=== PATIENT | female | born 2000 | race Caucasian/White ===

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

== ENCOUNTER 2020-09-24 21:26 | Emergency (ER) | payer BC, OTHER ==
[2020-09-24 21:39] VITALS: PULSE 88
[2020-09-24] MEDS ORDERED: SODIUM CHLORIDE 0.9% 1,000 ML IV STA (21:51)
--- NOTE | 2020-09-24 22:08 | ED ---
General Adult HPI - General Chief complaint: Dizziness Stated complaint: dizziness, seeing spots Time Seen by Provider: 09/24/20 21:51 Source: patient, family Mode of arrival: wheelchair Limitations: no limitations - History of Present Illness Initial comments: Patient presents to the ED stating that she got out of the shower at about 8 PM this evening then began to "see spots" and became dizzy. Patient states her symptoms improved after sitting down, but returned again once she stood up. Patient states that she still feels somewhat dizzy. Patient's mom states that the patient was at a trampoline park earlier today, and patient denies feeling d marvin while jumping on the trampoline earlier today. Patient denies having any pain, trauma or injury, fever or chills, headache, focal numbness/weakness/neuro deficit, otalgia, chest pain, dyspnea, palpitations, syncope, abdominal pain, nausea/vomiting/diarrhea, bloody or melanotic stool, dysuria or urinary symptoms, or any other symptoms or complaints. Patient states that her LMP was 2 weeks ago. - Related Data Home Medications Medication Instructions Recorded Confirmed Melatonin 5 mg PO HS 09/24/20 09/24/20 Gummy 2 tab PO DAILY 09/24/20 09/24/20 Previous Rx's Medication Instructions Recorded Meclizine [Antivert] 25 mg PO TID PRN #10 tab 09/24/20 Allergies Allergy/AdvReac Type Severity Reaction Status Date / Time latex Allergy Rash/Hives Verified 09/24/20 22:54 Review of Systems ROS Statement: Those systems with pertinent positive or pertinent negative responses have been documented in the HPI. ROS Other: All systems not noted in ROS Statement are negative. Past Medical History Past Medical History: No Reported History Additional Past Medical History / Comment(s): Obstetrics history: This is her first and she's had care with me since the first trimester. Blood type is B+, and base negative, rubella immune, hepatitis B-, RPR nonreactive, GBS negative. History of Any Multi-Drug Resistant Organisms: None Reported Past Surgical History: No Surgical Hx Reported Past Psychological History: No Psychological Hx Reported Smoking Status: Never smoker Past Alcohol Use History: None Reported Past Drug Use History: None Reported - Past Family History Father History Unknown: Yes General Exam Limitations: no limitations General appearance: alert, in no apparent distress Head exam: Present: atraumatic, normocephalic Eye exam: Present: normal appearance, PERRL, EOMI. Absent: nystagmus ENT exam: Present: mucous membranes moist Neck exam: Present: other (Trachea is in midline) Respiratory exam: Present: normal lung sounds bilaterally. Absent: respiratory distress, wheezes, rales, rhonchi, stridor Cardiovascular Exam: Present: regular rate, normal rhythm, normal heart sounds, other (Normal radial pulses bilaterally) GI/Abdominal exam: Present: soft. Absent: distended, tenderness, guarding Extremities exam: Absent: tenderness, pedal edema, calf tenderness Neurological exam: Present: alert, oriented X3, CN II-XII intact. Absent: motor sensory deficit Psychiatric exam: Present: normal affect, normal mood Skin exam: Present: warm, dry, intact, normal color Course Vital Signs 09/24/20 21:37 Temperature 98.2 F Pulse Rate 88 Respiratory 20 Rate Blood Pressure 124/88 O2 Sat by Pulse 100 Oximetry - Reevaluation(s) Reevaluation #1: 09/24/20 23:23 Patient denies development of any new symptoms while in the ED. Patient remains alert and breathing comfortably. Patient and mother are aware the patient's test results, and they both feel comfortable with the patient going home at this time. Patient was counseled about dizziness, and she was clearly explained return and follow-up instructions. Patient was instructed to follow up closely with her primary care provider. Patient feels comfortable with this plan. EKG Findings - EKG Comments: EKG Findings:: Normal sinus rhythm, ventricular rate of 80 bpm, normal CO and QRS intervals, normal QT interval, normal axis, no ST or T-wave abnormality Medical Decision Making - Medical Decision Making Patient has been ambulatory in the ED without difficulty. Patient has a normal /nonfocal neurological exam. Patient's EKG and labs are fairly unremarkable. Patient's vital signs are normal/reassuring. I do not suspect an emergent medical etiology of the patient's dizziness/symptoms. Patient was clearly given return and follow-up instructions. Will discharge patient home with her mother at this time. Patient was instructed to follow up closely with her primary care provider. - Lab Data Result diagrams: 09/24/20 22:23 09/24/20 22:23 Lab Results 09/24/20 09/24/20 Range/Units 22:23 22:23 WBC 10.1 (4.0-11.0) k/uL RBC 4.82 (3.80-5.40) m/uL Hgb 14.0 (11.4-16.0) gm/dL Hct 41.4 (34.0-46.0) % MCV 85.9 (80.0-100.0) fL MCH 29.1 (25.0-35.0) pg MCHC 33.8 (31.0-37.0) g/dL RDW 13.1 (11.5-15.5) % Plt Count 269 (150-450) k/uL MPV 8.2 Neutrophils % 64 % Lymphocytes % 27 % Monocytes % 5 % Eosinophils % 2 % Basophils % 0 % Neutrophils # 6.4 (1.3-7.7) k/uL Lymphocytes # 2.7 (1.0-4.8) k/uL Monocytes # 0.5 (0-1.0) k/uL Eosinophils # 0.2 (0-0.7) k/uL Basophils # 0.0 (0-0.2) k/uL Sodium 137 (137-145) mmol/L Potassium 4.7 (3.5-5.1) mmol/L Chloride 105 (98-107) mmol/L Carbon Dioxide 21 L (22-30) mmol/L Anion Gap 11 mmol/L BUN 12 (7-17) mg/dL Creatinine 0.67 (0.52-1.04) mg/dL Est GFR (CKD-EPI)AfAm >90 (>60 ml/min/1.73 sqM) Est GFR (CKD-EPI)NonAf >90 (>60 ml/min/1.73 sqM) Glucose 98 (74-99) mg/dL Calcium 9.6 (8.4-10.2) mg/dL Total Bilirubin 0.5 (0.2-1.3) mg/dL AST 34 (14-36) U/L ALT 10 (4-34) U/L Alkaline Phosphatase 72 (38-126) U/L Total Protein 7.5 (6.3-8.2) g/dL Albumin 4.5 (3.5-5.0) g/dL HCG, Qual Not Detected Disposition Clinical Impression: Dizziness Disposition: HOME SELF-CARE Condition: Stable Instructions (If sedation given, give patient instructions): Dizziness (ED) Additional Instructions: Return to the ER immediately should you develop any significant pain, chest pain, shortness of breath, a fever, feeling faint or fainting, numbness or weakness, persistent vomiting, or new or worsening symptoms. Follow up closely with your primary care provider. Prescriptions: Meclizine [Antivert] 25 mg PO TID PRN #10 tab PRN Reason: Vertigo Is patient prescribed a controlled substance at d/c from ED?: No Referrals: Zachary Woodward DO [Primary Care Provider] - 1-2 days Time of Disposition: 23:26
[2020-09-24 22:33] LABS: Basophils % (A) 0 %; Eosinophils # (A) 0.2 k/uL (0-0.7); Eosinophils % (A) 2 %; HCT 41.4 % (34.0-46.0); Lymphocytes # (A) 2.7 k/uL (1.0-4.8); Lymphocytes % (A) 27 %; MCH 29.1 pg (25.0-35.0); MCHC 33.8 g/dL (31.0-37.0); MCV 85.9 fL (80.0-100.0); Mean Platelet Volume 8.2; Monocytes # (A) 0.5 k/uL (0-1.0); Monocytes % (A) 5 %; Neutrophils # (A) 6.4 k/uL (1.3-7.7); Neutrophils % (A) 64 %; Platelet Count 269 k/uL (150-450); RBC 4.82 m/uL (3.80-5.40); RDW 13.1 % (11.5-15.5); WBC 10.1 k/uL (4.0-11.0)
[2020-09-24 22:58] LABS: ALT 10 U/L (4-34); African American GFR (CKD) >90 (>60 ml/min/1.73 sqM); Anion Gap 11 mmol/L; Blood Urea Nitrogen 12 mg/dL (7-17); Calcium 9.6 mg/dL (8.4-10.2); Carbon Dioxide 21 mmol/L (22-30); Chloride 105 mmol/L (98-107); Glucose 98 mg/dL (74-99); Non-African American GFR(CKD) >90 (>60 ml/min/1.73 sqM); Sodium 137 mmol/L (137-145); Total Bilirubin 0.5 mg/dL (0.2-1.3)
[2020-09-24 23:03] LABS: Potassium 4.7 mmol/L (3.5-5.1); Total Protein 7.5 g/dL (6.3-8.2)
[2020-09-24 23:04] LABS: AST 34 U/L (14-36); Albumin 4.5 g/dL (3.5-5.0); Alkaline Phosphatase 72 U/L (38-126)
[2020-09-24] MEDS ORDERED: MECLIZINE 12.5 MG TAB PO STA (23:18)
[2020-09-24 23:21] LABS: HCG,Qualitative Serum Not Detected
[2020-09-25 00:18] VITALS: BP 121/86; RESP 15; TEMP 98.7
== END 2020-09-25 00:12 | disposition home or self-care (01) ==
LOC: EC 21:26
DX: R42 Dizziness and giddiness (principal)
CPT/HCPCS: 36415; 80053; 84703; 85025; 93005; 96376; 99284

== ENCOUNTER 2021-06-06 17:34 | Emergency (ER) | payer BC, OTHER ==
[2021-06-06] MEDS ORDERED: MECLIZINE 12.5 MG TAB PO STA (22:47)
[2021-06-06] MEDS ORDERED: ONDANSETRON 4 MG/2 ML VIAL IVP STA (22:48)
[2021-06-06] MEDS ORDERED: SODIUM CHLORIDE 0.9% 500 ML 500 ML IV STA (22:48)
[2021-06-06] MEDS ORDERED: KETOROLAC 30 MG/ML 1 ML VIAL IVP STA (22:48)
[2021-06-06 23:40] LABS: Basophils % (A) 0 %; Eosinophils # (A) 0.1 k/uL (0-0.7); Eosinophils % (A) 1 %; HCT 43.7 % (34.0-46.0); HGB 15.3 gm/dL (11.4-16.0); Lymphocytes % (A) 12 %; MCH 29.4 pg (25.0-35.0); Mean Platelet Volume 8.7; Monocytes # (A) 0.4 k/uL (0-1.0); Monocytes % (A) 4 %; Neutrophils # (A) 7.2 k/uL (1.3-7.7); Neutrophils % (A) 82 %; Platelet Count 202 k/uL (150-450); RDW 12.7 % (11.5-15.5); WBC 8.8 k/uL (4.0-11.0)
[2021-06-06 23:49] LABS: ALT 9 U/L (4-34); AST 22 U/L (14-36); African American GFR (CKD) >90 (>60 ml/min/1.73 sqM); Albumin 4.4 g/dL (3.5-5.0); Alkaline Phosphatase 64 U/L (38-126); Anion Gap 10 mmol/L; Blood Urea Nitrogen 12 mg/dL (7-17); Calcium 9.1 mg/dL (8.4-10.2); Carbon Dioxide 21 mmol/L (22-30); Chloride 104 mmol/L (98-107); Glucose 93 mg/dL (74-99); Non-African American GFR(CKD) >90 (>60 ml/min/1.73 sqM); Potassium 4.6 mmol/L (3.5-5.1); Sodium 135 mmol/L (137-145); Total Bilirubin 0.6 mg/dL (0.2-1.3); Total Protein 7.6 g/dL (6.3-8.2)
--- NOTE | 2021-06-07 00:34 | ED ---
Dizziness HPI - General Chief Complaint: Dizziness Stated Complaint: vision problems, off balance Time Seen by Provider: 06/06/21 22:03 Source: patient, RN notes reviewed Mode of arrival: ambulatory Limitations: no limitations - History of Present Illness Initial Comments: Patient is a 20-year-old female presenting to the emergency Department with complaints of dizziness and nausea that was happening today while at work. Patient states she does have a history of vertigo, used to take Antivert every day and does keep her symptoms at bay. Patient states her doctor told her to stop taking it. Today while she was at work, she had an episode of ligh theadedness, diaphoresis and then was having dizziness. She is also complaining of a headache now too. Patient denies any fevers or chills, no falls. She denies being . No abdominal pain. Patient denies any chest pain or shortness of breath. She has no further complaints. - Related Data Home Medications Medication Instructions Recorded Confirmed Melatonin 5 mg PO HS 09/24/20 09/24/20 Gummy 2 tab PO DAILY 09/24/20 09/24/20 Previous Rx's Medication Instructions Recorded Meclizine [Antivert] 25 mg PO TID PRN #10 tab 09/24/20 Allergies Allergy/AdvReac Type Severity Reaction Status Date / Time latex Allergy Rash/Hives Verified 06/06/21 18:47 Review of Systems ROS Statement: Those systems with pertinent positive or pertinent negative responses have been documented in the HPI. ROS Other: All systems not noted in ROS Statement are negative. Past Medical History Past Medical History: No Reported History Additional Past Medical History / Comment(s): Obstetrics history: This is her first and she's had care with me since the first trimester. Blood type is B+, and base negative, rubella immune, hepatitis B-, RPR nonreactive, GBS negative. History of Any Multi-Drug Resistant Organisms: None Reported Past Surgical History: No Surgical Hx Reported Past Psychological History: No Psychological Hx Reported Smoking Status: Never smoker Past Alcohol Use History: None Reported Past Drug Use History: None Reported - Past Family History Father History Unknown: Yes General Exam - General Exam Comments Initial Comments: GENERAL: Patient is well-developed and well-nourished. Patient is nontoxic and in no acute distress. HEAD: Atraumatic, normocephalic. EYES: Pupils equal round and reactive to light, extraocular movements intact, sclera anicteric, conjunctiva are normal. Eyelids were unremarkable. ENT: TMs normal, nares patent, oropharynx clear without exudates. Moist mucous membranes. NECK: Normal range of motion, supple without lymphadenopathy or JVD. LUNGS: Unlabored respirations. Breath sounds clear to auscultation bilaterally and equal. No wheezes rales or rhonchi. HEART: Regular rate and rhythm without murmurs, rubs or gallops. ABDOMEN: Soft, nontender, normoactive bowel sounds. No guarding, no rebound. No masses appreciated. MUSCULOSKELETAL: Normal extremities with adequate strength and normal range of motion, no pitting or edema. No clubbing or cyanosis. NEUROLOGICAL: Patient is alert and oriented x 3. Motor and sensory are also intact. Cranial nerves II through XII grossly intact. Symmetrical smile. Normal speech, normal gait. PSYCH: Normal mood, normal affect. SKIN: Warm, Dry, normal turgor, no rashes or lesions noted. Limitations: no limitations Course Vital Signs 06/06/21 06/06/21 06/07/21 18:43 23:30 00:54 Temperature 98.3 F 97.9 F Pulse Rate 89 95 87 Respiratory 16 18 19 Rate Blood Pressure 125/61 114/82 118/78 O2 Sat by Pulse 99 97 99 Oximetry EKG Findings - EKG Comments: EKG Findings:: Normal sinus rhythm, normal ECG, no signs of acute process. Ventricular rate 98, AR interval 136, QT 348. Medical Decision Making - Medical Decision Making Patient is a 20-year-old female here with lightheadedness dizziness, nausea and a headache that started about work today. She does history of vertigo. Vital signs are stable, exam is unremarkable, no acute neuro deficits. EKG reveals normal sinus rhythm. Labs are unremarkable including a normal thyroid. Patient was given IV fluids, meclizine and headache medication. She has been resting comfortably, no acute distress. Patient ordered [employer] into the ER, eating without difficulty. I discussed these findings with her. I recommended taking meclizine for the dizziness. She is agreeable this plan of care and she is stable for discharge. - Lab Data Result diagrams: 06/06/21 23:30 06/06/21 23:30 Lab Results 06/06/21 06/06/21 Range/Units 23:30 23:30 WBC 8.8 (4.0-11.0) k/uL RBC 5.20 (3.80-5.40) m/uL Hgb 15.3 (11.4-16.0) gm/dL Hct 43.7 (34.0-46.0) % MCV 84.0 (80.0-100.0) fL MCH 29.4 (25.0-35.0) pg MCHC 35.0 (31.0-37.0) g/dL RDW 12.7 (11.5-15.5) % Plt Count 202 (150-450) k/uL MPV 8.7 Neutrophils % 82 % Lymphocytes % 12 % Monocytes % 4 % Eosinophils % 1 % Basophils % 0 % Neutrophils # 7.2 (1.3-7.7) k/uL Lymphocytes # 1.0 (1.0-4.8) k/uL Monocytes # 0.4 (0-1.0) k/uL Eosinophils # 0.1 (0-0.7) k/uL Basophils # 0.0 (0-0.2) k/uL Sodium 135 L (137-145) mmol/L Potassium 4.6 (3.5-5.1) mmol/L Chloride 104 (98-107) mmol/L Carbon Dioxide 21 L (22-30) mmol/L Anion Gap 10 mmol/L BUN 12 (7-17) mg/dL Creatinine 0.59 (0.52-1.04) mg/dL Est GFR (CKD-EPI)AfAm >90 (>60 ml/min/1.73 sqM) Est GFR (CKD-EPI)NonAf >90 (>60 ml/min/1.73 sqM) Glucose 93 (74-99) mg/dL Calcium 9.1 (8.4-10.2) mg/dL Total Bilirubin 0.6 (0.2-1.3) mg/dL AST 22 (14-36) U/L ALT 9 (4-34) U/L Alkaline Phosphatase 64 (38-126) U/L Total Protein 7.6 (6.3-8.2) g/dL Albumin 4.4 (3.5-5.0) g/dL TSH 1.440 (0.465-4.680) mIU/L Disposition Clinical Impression: Dizziness Disposition: HOME SELF-CARE Condition: Stable Instructions (If sedation given, give patient instructions): Dizziness (ED) Additional Instructions: Please return to the Emergency Department if symptoms worsen or any other concerns. May take meclizine 25 mg once daily for any symptoms. This is [id number]. Follow-up with your primary care. Is patient prescribed a controlled substance at d/c from ED?: No Referrals: Zachary Woodward DO [Primary Care Provider] - 1-2 days Time of Disposition: 00:34
[2021-06-07 00:56] VITALS: BP 118/78; PULSE 87; RESP 19; TEMP 97.9
== END 2021-06-07 00:48 | disposition home or self-care (01) ==
LOC: EC 17:34
DX: R42 Dizziness and giddiness (principal); R51.9 Headache, unspecified
CPT/HCPCS: 36415; 93005; 80053; 84443; 85025; 99284; 96374; 96375; J2405; J1885

== ENCOUNTER 2021-09-29 10:33 | Emergency (ER) | payer BC, OTHER ==
[2021-09-29 11:02] VITALS: TEMP 97.9
[2021-09-29] MEDS ORDERED: ONDANSETRON 4 MG/2 ML VIAL IVP STA (11:28)
[2021-09-29] MEDS ORDERED: SODIUM CHLORIDE 0.9% 1,000 ML IV STA (11:28)
[2021-09-29] MEDS ORDERED: KETOROLAC 15 MG/ML 1 ML VIAL IVP STA (11:39)
--- NOTE | 2021-09-29 12:06 | ED ---
General Adult HPI - General Chief complaint: Dizziness Stated complaint: NVD Time Seen by Provider: 09/29/21 11:05 Source: patient Mode of arrival: ambulatory Limitations: no limitations - History of Present Illness Initial comments: Patient is a 20-year-old female with history of vertigo and migraines presenting with chief complaint of nausea and vomiting. Patient states that for the last 3 days she has "not been able to keep anything down". Patient states she cannot tolerate fluids by mouth. She has been experiencing some lightheadedness and headache. Patient states that she previously was given meclizine for vertigo she took some this morning which did not alleviate her symptoms. Patient admits to unilateral headache on the left side that is consistent with her usual migraine headaches. She also admits to some neck tension. She has taken some Tylenol at home which has not helped the headache. She denies abdominal pain, chest pain, shortness of breath, loss of consciousness, diarrhea, constipation, hematemesis, hematochezia, hematuria, urgency, frequency, dysuria, fever, chills, palpitations, weakness. - Related Data Home Medications Medication Instructions Recorded Confirmed Melatonin 5 mg PO HS 09/24/20 09/24/20 Gummy 2 tab PO DAILY 09/24/20 09/24/20 Previous Rx's Medication Instructions Recorded Meclizine [Antivert] 25 mg PO TID PRN #10 tab 09/24/20 Cyclobenzaprine [Flexeril] 10 mg PO TID PRN #20 tab 09/29/21 Ondansetron Odt [Zofran Odt] 4 mg PO Q8HR PRN #10 tab 09/29/21 Allergies Allergy/AdvReac Type Severity Reaction Status Date / Time latex Allergy Rash/Hives Verified 09/29/21 11:02 Review of Systems ROS Statement: Those systems with pertinent positive or pertinent negative responses have been documented in the HPI. ROS Other: All systems not noted in ROS Statement are negative. Past Medical History Past Medical History: No Reported History Additional Past Medical History / Comment(s): Obstetrics history: This is her first and she's had care with me since the first trimester. Blood type is B+, and base negative, rubella immune, hepatitis B-, RPR nonreactive, GBS negative. History of Any Multi-Drug Resistant Organisms: None Reported Past Surgical History: No Surgical Hx Reported Past Psychological History: No Psychological Hx Reported Smoking Status: Never smoker Past Alcohol Use History: None Reported Past Drug Use History: None Reported - Past Family History Father History Unknown: Yes General Exam Limitations: no limitations General appearance: alert, in no apparent distress Head exam: Present: atraumatic, normocephalic, normal inspection Eye exam: Present: normal appearance, PERRL, EOMI. Absent: scleral icterus, conjunctival injection, periorbital swelling ENT exam: Present: normal exam, mucous membranes moist Neck exam: Present: normal inspection, tenderness, full ROM. Absent: meningismus, lymphadenopathy Respiratory exam: Present: normal lung sounds bilaterally. Absent: respiratory distress, wheezes, rales, rhonchi, stridor Cardiovascular Exam: Present: regular rate, normal rhythm, normal heart sounds. Absent: systolic murmur, diastolic murmur, rubs, gallop, clicks GI/Abdominal exam: Present: soft, normal bowel sounds. Absent: distended, tenderness, guarding, rebound, rigid Neurological exam: Present: alert, oriented X3, CN II-XII intact Expanded Patient oriented to: Present: person, place, time Speech: Present: fluid speech Cranial nerves: EOM's Intact: Normal, Nystagmus: Normal Eye Response: (4) open spontaneously Motor Response: (6) obeys commands Verbal Response: (5) oriented [place] Total: 15 Psychiatric exam: Present: normal affect, normal mood Skin exam: Present: warm, dry, intact, normal color. Absent: rash Course Vital Signs 09/29/21 09/29/21 10:58 14:01 Temperature 97.9 F Pulse Rate 76 67 Respiratory 18 17 Rate Blood Pressure 115/80 112/73 O2 Sat by Pulse 98 98 Oximetry Medical Decision Making - Medical Decision Making Patient is a 20-year-old female presenting with chief complaint of Nausea and vomiting. Patient states that for the last 3 days she "has not been able to keep anything down". She also admits to some lightheadedness and headache. She took meclizine at home which did not alleviate her symptoms. On exam there are no focal neuro deficits. Abdomen is soft, nontender, nondistended. Normal bowel sounds in all 4 quadrants. UA is positive for blood, patient is currently on menstrual cycle. CBC and CMP are unremarkable. Patient was given Toradol, Zofran, and 1 L IV bolus normal saline. On reassessment patient reports nausea and vomiting are resolved, headache has improved but is not totally resolved. On examination there is some paraspinal muscle tenderness in the neck. I provided the patient with a prescription for Zofran and Flexeril. Patient appears well and able to be discharged at this time. I educated the patient on return parameters, educated on alarms symptoms, and answered all questions. Follow-up with PCP in one to 2 days. Patient conveyed verbal understanding and agreed to the plan. I discussed this case with my attending Dr. Guzman - Lab Data Result diagrams: 09/29/21 11:55 09/29/21 11:55 Lab Results 09/29/21 09/29/21 09/29/21 Range/Units 11:55 11:55 12:40 WBC 7.1 (4.0-11.0) k/uL RBC 4.80 (3.80-5.40) m/uL Hgb 13.9 (11.4-16.0) gm/dL Hct 42.2 (34.0-46.0) % MCV 88.0 (80.0-100.0) fL MCH 29.1 (25.0-35.0) pg MCHC 33.0 (31.0-37.0) g/dL RDW 12.8 (11.5-15.5) % Plt Count 229 (150-450) k/uL MPV 9.0 Neutrophils % 68 % Lymphocytes % 23 % Monocytes % 6 % Eosinophils % 2 % Basophils % 1 % Neutrophils # 4.8 (1.3-7.7) k/uL Lymphocytes # 1.6 (1.0-4.8) k/uL Monocytes # 0.4 (0-1.0) k/uL Eosinophils # 0.1 (0-0.7) k/uL Basophils # 0.0 (0-0.2) k/uL Sodium 137 (137-145) mmol/L Potassium 4.2 (3.5-5.1) mmol/L Chloride 106 (98-107) mmol/L Carbon Dioxide 23 (22-30) mmol/L Anion Gap 8 mmol/L BUN 12 (7-17) mg/dL Creatinine 0.71 (0.52-1.04) mg/dL Est GFR (CKD-EPI)AfAm >90 (>60 ml/min/1.73 sqM) Est GFR (CKD-EPI)NonAf >90 (>60 ml/min/1.73 sqM) Glucose 88 (74-99) mg/dL Calcium 8.7 (8.4-10.2) mg/dL Total Bilirubin 0.4 (0.2-1.3) mg/dL AST 20 (14-36) U/L ALT 8 (4-34) U/L Alkaline Phosphatase 61 (38-126) U/L Total Protein 7.2 (6.3-8.2) g/dL Albumin 4.2 (3.5-5.0) g/dL Urine Color Light Yellow Urine Appearance Clear (Clear) Urine pH 7.0 (5.0-8.0) Ur Specific Donnelly 1.007 (1.001-1.035) Urine Protein Negative (Negative) Urine Glucose (UA) Negative (Negative) Urine Ketones Negative (Negative) Urine Blood Moderate H (Negative) Urine Nitrite Negative (Negative) Urine Bilirubin Negative (Negative) Urine Urobilinogen <2.0 (<2.0) mg/dL Ur Leukocyte Esterase Trace H (Negative) Urine RBC 162 H (0-5) /hpf Urine WBC 4 (0-5) /hpf Ur Squamous Epith Cells 1 (0-4) /hpf Urine Mucus Rare H (None) /hpf Urine HCG, Qual (Not Detectd) 09/29/21 Range/Units 12:40 WBC (4.0-11.0) k/uL RBC (3.80-5.40) m/uL Hgb (11.4-16.0) gm/dL Hct (34.0-46.0) % MCV (80.0-100.0) fL MCH (25.0-35.0) pg MCHC (31.0-37.0) g/dL RDW (11.5-15.5) % Plt Count (150-450) k/uL MPV Neutrophils % % Lymphocytes % % Monocytes % % Eosinophils % % Basophils % % Neutrophils # (1.3-7.7) k/uL Lymphocytes # (1.0-4.8) k/uL Monocytes # (0-1.0) k/uL Eosinophils # (0-0.7) k/uL Basophils # (0-0.2) k/uL Sodium (137-145) mmol/L Potassium (3.5-5.1) mmol/L Chloride (98-107) mmol/L Carbon Dioxide (22-30) mmol/L Anion Gap mmol/L BUN (7-17) mg/dL Creatinine (0.52-1.04) mg/dL Est GFR (CKD-EPI)AfAm (>60 ml/min/1.73 sqM) Est GFR (CKD-EPI)NonAf (>60 ml/min/1.73 sqM) Glucose (74-99) mg/dL Calcium (8.4-10.2) mg/dL Total Bilirubin (0.2-1.3) mg/dL AST (14-36) U/L ALT (4-34) U/L Alkaline Phosphatase (38-126) U/L Total Protein (6.3-8.2) g/dL Albumin (3.5-5.0) g/dL Urine Color Urine Appearance (Clear) Urine pH (5.0-8.0) Ur Specific [place] (1.001-1.035) Urine Protein (Negative) Urine Glucose (UA) (Negative) Urine Ketones (Negative) Urine Blood (Negative) Urine Nitrite (Negative) Urine Bilirubin (Negative) Urine Urobilinogen (<2.0) mg/dL Ur Leukocyte Esterase (Negative) Urine RBC (0-5) /hpf Urine WBC (0-5) /hpf Ur Squamous Epith Cells (0-4) /hpf Urine Mucus (None) /hpf Urine HCG, Qual Not Detected (Not Detectd) Disposition Clinical Impression: Nausea and vomiting, Tension headache Disposition: HOME SELF-CARE Condition: Good Instructions (If sedation given, give patient instructions): Tension Headache (ED), Acute Headache (DC), Acute Nausea and Vomiting (DC) Additional Instructions: Follow-up with primary care in 2-3 days. Take medication as prescribed. You may take Motrin and Tylenol as needed for pain control. Report back to ER with any worsening symptoms or new onset alarm symptoms. Prescriptions: Cyclobenzaprine [Flexeril] 10 mg PO TID PRN #20 tab PRN Reason: Muscle Pain Ondansetron Odt [Zofran Odt] 4 mg PO Q8HR PRN #10 tab PRN Reason: Nausea Is patient prescribed a controlled substance at d/c from ED?: No Referrals: Zacahry Woodward DO [Primary Care Provider] - 1-2 days Time of Disposition: 13:39
[2021-09-29 12:07] LABS: Basophils % (A) 1 %; Eosinophils # (A) 0.1 k/uL (0-0.7); Eosinophils % (A) 2 %; HCT 42.2 % (34.0-46.0); HGB 13.9 gm/dL (11.4-16.0); Lymphocytes # (A) 1.6 k/uL (1.0-4.8); Lymphocytes % (A) 23 %; MCH 29.1 pg (25.0-35.0); Monocytes # (A) 0.4 k/uL (0-1.0); Monocytes % (A) 6 %; Neutrophils # (A) 4.8 k/uL (1.3-7.7); Neutrophils % (A) 68 %; Platelet Count 229 k/uL (150-450); RDW 12.8 % (11.5-15.5); WBC 7.1 k/uL (4.0-11.0)
[2021-09-29 12:20] LABS: Potassium 4.2 mmol/L (3.5-5.1)
[2021-09-29 12:21] LABS: ALT 8 U/L (4-34); AST 20 U/L (14-36); African American GFR (CKD) >90 (>60 ml/min/1.73 sqM); Albumin 4.2 g/dL (3.5-5.0); Alkaline Phosphatase 61 U/L (38-126); Anion Gap 8 mmol/L; Blood Urea Nitrogen 12 mg/dL (7-17); Calcium 8.7 mg/dL (8.4-10.2); Carbon Dioxide 23 mmol/L (22-30); Chloride 106 mmol/L (98-107); Glucose 88 mg/dL (74-99); Non-African American GFR(CKD) >90 (>60 ml/min/1.73 sqM); Sodium 137 mmol/L (137-145); Total Bilirubin 0.4 mg/dL (0.2-1.3); Total Protein 7.2 g/dL (6.3-8.2)
[2021-09-29 12:49] LABS: Appearance,Urine Clear (Clear); Bilirubin,Urine Negative (Negative); Blood,Urine Moderate (Negative); Color,Urine Light Yellow; Glucose,Urine (UA) Negative (Negative); Ketones,Urine Negative (Negative); Leukocyte Esterase,Urine Trace (Negative); Mucus,Urine Rare /hpf; Nitrite,Urine Negative (Negative); Protein,Urine Negative (Negative); RBC,Urine 162 /hpf (0-5); Specific Gravity,Urine 1.007 (1.001-1.035); Squamous Epithelial Cell,Urine 1 /hpf (0-4); Urobilinogen,Urine <2.0 mg/dL (<2.0); WBC,Urine 4 /hpf (0-5)
[2021-09-29 14:02] VITALS: BP 112/73; PULSE 67; RESP 17
== END 2021-09-29 14:02 | disposition home or self-care (01) ==
LOC: EC 10:33
DX: G44.209 Tension-type headache, unspecified, not intractable (principal); R11.2 Nausea with vomiting, unspecified; Z91.040 Latex allergy status
CPT/HCPCS: 99284; 96374; 96375; 96361; 36415; 80053; 85025; 81001; 81025; J2405; J1885

== ENCOUNTER 2022-03-07 17:26 | Emergency (ER) | payer OTHER, BC ==
[2022-03-07 18:14] VITALS: BP 120/78; PULSE 84; RESP 18; TEMP 98.3
--- NOTE | 2022-03-07 19:02 | XR ---
Result: Clinical History: Little finger pain/injury. Comparison: None available. Technique: 3 views of the right hand. Findings: No acute fracture or dislocation is seen. The visualized osseous structures are in anatomic alignmen t. The joint spaces are preserved. There is no definite radiopaque foreign body seen. Impression: No acute osseous abnormality.
--- NOTE | 2022-03-07 19:46 | ED ---
Upper Extremity HPI - General Chief Complaint: Extremity Injury, Upper Stated Complaint: right pinkie finger injury at work Time Seen by Provider: 03/07/22 19:11 Source: patient, RN notes reviewed Mode of arrival: ambulatory Limitations: no limitations - History of Present Illness Initial Comments: This is a 21-year-old female who presents to the emergency department for an injury to the right pinky finger. Patient states that she was at work earlier today, when she accidentally bent her finger forward and then backwards. Patient works at [employer]. She has since had difficulty moving the finger ever since. Denies any fevers, chills, sore throat, cough, dyspnea, chest pain, palpitations, abdominal pain, nausea, vomiting, diarrhea, back pain, or headaches. MD Complaint: Injury to:: right, finger Handedness: ambidextrous Place: work - Related Data Home Medications Medication Instructions Recorded Confirmed Melatonin 5 mg PO HS 09/24/20 09/24/20 Gummy 2 tab PO DAILY 09/24/20 09/24/20 Previous Rx's Medication Instructions Recorded Meclizine [Antivert] 25 mg PO TID PRN #10 tab 09/24/20 Cyclobenzaprine [Flexeril] 10 mg PO TID PRN #20 tab 09/29/21 Ondansetron Odt [Zofran Odt] 4 mg PO Q8HR PRN #10 tab 09/29/21 Allergies Allergy/AdvReac Type Severity Reaction Status Date / Time latex Allergy Rash/Hives Verified 03/07/22 18:14 Review of Systems ROS Statement: Those systems with pertinent positive or pertinent negative responses have been documented in the HPI. ROS Other: All systems not noted in ROS Statement are negative. Past Medical History Past Medical History: No Reported History Additional Past Medical History / Comment(s): Obstetrics history: This is her first and she's had care with me since the first trimester. Blood type is B+, and base negative, rubella immune, hepatitis B-, RPR nonreactive, GBS negative. History of Any Multi-Drug Resistant Organisms: None Reported Past Surgical History: No Surgical Hx Reported Past Psychological History: No Psychological Hx Reported Smoking Status: Vaper Past Alcohol Use History: Occasional Past Drug Use History: None Reported - Past Family History Father History Unknown: Yes General Exam Limitations: no limitations General appearance: alert, in no apparent distress Head exam: Present: atraumatic, normocephalic, normal inspection Respiratory exam: Present: normal lung sounds bilaterally. Absent: respiratory distress, wheezes, rales, rhonchi, stridor Cardiovascular Exam: Present: regular rate, normal rhythm, normal heart sounds. Absent: systolic murmur, diastolic murmur, rubs, gallop, clicks Extremities exam: Present: other (Decreased range of motion of the right fifth finger secondary to pain. Tenderness with passive range of motion of the right fifth finger. Capillary refill less than 1 second. No overlying swelling, erythema, or ecchymosis.) Neurological exam: Present: alert, oriented X3, CN II-XII intact Psychiatric exam: Present: normal affect, normal mood Skin exam: Present: warm, dry, intact, normal color. Absent: rash Course Vital Signs 03/07/22 18:11 Temperature 98.3 F Pulse Rate 84 Respiratory 18 Rate Blood Pressure 120/78 O2 Sat by Pulse 99 Oximetry Medical Decision Making - Medical Decision Making This is a 21-year-old female who presents to the emergency department for an injury to the right pinky finger. X-rays obtained, revealing no acute irregularities. Patient's hand was wrapped with an Prateek bandage. Advised applying ice for 15-20 minutes every 2-3 hours and taking ibuprofen and Tylenol as needed for pain relief. If symptoms do not improve in 7-10 days, she may need repeat x-rays in the event swelling was hiding fractures that are not currently identifiable. Advised to continue wrapping her hand with an Prateek bandage or purchasing an [id number] wrist brace if she finds it to be beneficial. Return precautions reviewed in depth, the patient is instructed to return to the emergency department with any new, worsening, or concerning symptoms. Patient verbalized understanding. This case was discussed in detail with the attending ED physician. Presentation, findings, and treatment plan discussed in detail as well. - Radiology Data Radiology results: report reviewed, image reviewed Disposition Clinical Impression: Other sprain of right little finger, initial encounter Disposition: HOME SELF-CARE Instructions (If sedation given, give patient instructions): Finger Sprain (ED), Hand Sprain (ED) Additional Instructions: Return to the emergency department with any new, worsening, or concerning symptoms. Alternate with ibuprofen and Tylenol as needed for pain relief. Appl y ice for 15-20 minutes every 2-3 hours. If symptoms do not improve in 7-10 days, return for repeat x-rays, as you may have fractures that were not initially identifiable. Continue to wrap the hand with an Prateek bandage or purchase an [id number] wrist brace if you find that to be beneficial. Is patient prescribed a controlled substance at d/c from ED?: No Referrals: Zachary Woodward DO [Primary Care Provider] - 1-2 days
== END 2022-03-07 19:57 | disposition home or self-care (01) ==
LOC: EC 17:26
DX: S63.696A Other sprain of right little finger, initial encounter (principal); F17.290 Nicotine dependence, other tobacco product, uncomplicated; Z91.040 Latex allergy status; X50.9XXA Other and unspecified overexertion or strenuous movements or postures, initial encounter; Y92.89 Other specified places as the place of occurrence of the external cause; Y99.0 Civilian activity done for income or pay
CPT/HCPCS: 99283

== ENCOUNTER 2022-07-05 14:15 | Emergency (ER) | payer BC, OTHER ==
[2022-07-05 14:20] VITALS: BP 131/77; PULSE 100; RESP 20; TEMP 98.6
[2022-07-05] MEDS ORDERED: SODIUM CHLORIDE 0.9% 1,000 ML IV STA (17:01)
[2022-07-05] MEDS ORDERED: ACETAMINOPHEN TAB 500 MG TAB PO STA (17:01)
[2022-07-05] MEDS ORDERED: ONDANSETRON 4 MG/2 ML VIAL IVP STA (17:01)
[2022-07-05 17:46] LABS: Basophils % (A) 0 %; Eosinophils # (A) 0.1 k/uL (0-0.7); Eosinophils % (A) 1 %; HCT 43.1 % (34.0-46.0); HGB 14.9 gm/dL (11.4-16.0); Lymphocytes # (A) 1.8 k/uL (1.0-4.8); Lymphocytes % (A) 18 %; MCH 29.7 pg (25.0-35.0); MCHC 34.7 g/dL (31.0-37.0); MCV 85.7 fL (80.0-100.0); Mean Platelet Volume 9.2; Monocytes # (A) 0.4 k/uL (0-1.0); Monocytes % (A) 4 %; Neutrophils # (A) 7.7 k/uL (1.3-7.7); Neutrophils % (A) 75 %; Platelet Count 261 k/uL (150-450); RBC 5.02 m/uL (3.80-5.40); RDW 12.3 % (11.5-15.5); WBC 10.2 k/uL (3.8-10.6)
[2022-07-05 17:56] LABS: ALT 12 U/L (4-34); AST 21 U/L (14-36); African American GFR (CKD) >90 (>60 ml/min/1.73 sqM); Albumin 4.7 g/dL (3.5-5.0); Alkaline Phosphatase 62 U/L (38-126); Anion Gap 9 mmol/L; Blood Urea Nitrogen 11 mg/dL (7-17); Calcium 9.2 mg/dL (8.4-10.2); Carbon Dioxide 24 mmol/L (22-30); Chloride 106 mmol/L (98-107); Glucose 94 mg/dL (74-99); Lipase 142 U/L (23-300); Non-African American GFR(CKD) >90 (>60 ml/min/1.73 sqM); Potassium 4.1 mmol/L (3.5-5.1); Sodium 139 mmol/L (137-145); Total Bilirubin 0.2 mg/dL (0.2-1.3); Total Protein 7.8 g/dL (6.3-8.2)
[2022-07-05 18:14] LABS: HCG,Quantitative Serum 1330.7 mIU/mL
[2022-07-05 18:44] LABS: INR 0.9 (<1.2); Partial Thromboplastin Time 23.4 sec (22.0-30.0); Prothrombin Time 9.8 sec (9.0-12.0)
--- NOTE | 2022-07-05 18:56 | US ---
EXAMINATION TYPE: Transabdominal DATE OF EXAM: 07/05/2022 6:27 PM COMPARISON: NONE CLINICAL HISTORY: , abd pain. Abdominal pain x couple days. . EXAM PERFORMED: Transvaginal (TV) and Transabdominal (TA) EXAM MEASUREMENTS: GESTATIONAL AGE / DATING Physician Established: Not yet established Dates by LMP: (5 weeks/2 days) EDC: 03/05/2023 Dates by First Scan: This is first scan Dates by Current Scan for: Possible gestational sac in uterus measures out of range. MATERNAL ANATOMY Uterus: 8.8 x 5.0 x 5.2 cm. Right Ovary: Area measured in right adnexa that could resemble right ovary: 4.3 x 2.6 x 2.4 cm. Compl ex area with vascularity seen within as mentioned below. Left Ovary: 2.6 x 1.7 x 0.8 cm. Post CDS / Adnexa: Free fluid seen in CDS. See below. Presence of free fluid: Yes in CDS Presence of corpus luteal cyst: Questionable area seen within the right adnexa as mentioned below. Presence of subchorionic bleed: No GESTATION / SURVEY CRL: Not seen MSD: 0.30 cm. (Measures out of range) Yolk Sac (normal less than 6mm): Not seen Heart Rate: -- Rhythm: -- IUP: Possible gestational sac in uterus measures out of range. Date of LMP: 05/29/2022 Beta HcG (if available): 1,330.7 mIU/mL Questionable complex area with peripheral vascularity seen in the right adnexa which appears to be within the right ovary versus right adnexa. This area measures 2.1 x 2.2 x 1.8 IMPRESSION: 1. Small anechoic intrauterine cystic structure without evidence for yolk sac or pole at this time. This is thought to represent an early gestational sac with a positive beta hCG of 1330 mIU/mL, however ectopic and abnormal intrauterine cannot be ruled out based on this exam alone. Follow-up with pelvic ultrasound in 7-10 days and serial beta-hCG studies are recommended to e n sure further development of the fetus. 2. Right adnexal cystic structure ultrasound imaging does appear to be within within the right ovary and not a separate, this may represent a corpus luteum. Attention on short-term follow-up in 5-7 day s.
[2022-07-05 19:19] LABS: Appearance,Urine Cloudy (Clear); Bacteria,Urine Rare /hpf; Bilirubin,Urine Negative (Negative); Blood,Urine Negative (Negative); Color,Urine Yellow; Glucose,Urine (UA) Negative (Negative); Ketones,Urine Negative (Negative); Leukocyte Esterase,Urine Large (Negative); Mucus,Urine Occasional /hpf; Nitrite,Urine Negative (Negative); PH, Urine 5.5 (5.0-8.0); Protein,Urine Trace (Negative); RBC,Urine 2 /hpf (0-5); Specific Gravity,Urine 1.023 (1.001-1.035); Squamous Epithelial Cell,Urine 9 /hpf (0-4); Urobilinogen,Urine <2.0 mg/dL (<2.0); WBC,Urine 10 /hpf (0-5)
--- NOTE | 2022-07-05 19:27 | ED ---
General Adult HPI - General Chief complaint: Abdominal Pain Stated complaint: poss preg Time Seen by Provider: 07/05/22 16:22 Source: patient, RN notes reviewed, old records reviewed Mode of arrival: ambulatory Limitations: no limitations - History of Present Illness Initial comments: Patient is a 21-year-old female presents emergency Department complaining of nonspecific abdominal cramping sensation. Discovered She was recently. Last menstrual period was 05/29/2022. She is G2, P1 denies any vaginal bleeding or discharge. No history of STI's. Denies any urinary symptoms including dysuria or hematuria. Denies any nausea or vomiting. Denies any diarrhea. Denies any chest pain or shortness breath. Unable to follow up with her PCP or [facility] wanted to be evaluated for . Has been on vitamins since her last . No other acute complaints at this time. - Related Data Home Medications Medication Instructions Recorded Confirmed Melatonin 5 mg PO HS 09/24/20 09/24/20 Gummy 2 tab PO DAILY 09/24/20 09/24/20 Previous Rx's Medication Instructions Recorded Meclizine [Antivert] 25 mg PO TID PRN #10 tab 09/24/20 Cyclobenzaprine [Flexeril] 10 mg PO TID PRN #20 tab 09/29/21 Ondansetron Odt [Zofran Odt] 4 mg PO Q8HR PRN #10 tab 09/29/21 Allergies Allergy/AdvReac Type Severity Reaction Status Date / Time latex Allergy Rash/Hives Verified 03/07/22 18:14 Review of Systems ROS Statement: Those systems with pertinent positive or pertinent negative responses have been documented in the HPI. Review of Systems: CONST: Denies fever EYES: Denies blurry vision ENT: Denies nasal congestion C/V: Denies Chest pain RESP: Denies shortness of breath GI: Endorses abdominal cramping : Denies dysuria SKIN: Denies rash. MSK: Denies joint pain. NEURO: Denies headache ROS Other: All systems not noted in ROS Statement are negative. Past Medical History Past Medical History: No Reported History Additional Past Medical History / Comment(s): Obstetrics history: This is her first and she's had care with me since the first trimester. Blood type is B+, and base negative, rubella immune, hepatitis B-, RPR nonreactive, GBS negative. History of Any Multi-Drug Resistant Organisms: None Reported Past Surgical History: No Surgical Hx Reported Past Psychological History: No Psychological Hx Reported Smoking Status: Vaper Past Alcohol Use History: Occasional Past Drug Use History: None Reported - Past Family History Father History Unknown: Yes General Exam - General Exam Comments Initial Comments: General: Appears in no acute distress. HEAD: Normal with no signs of head trauma. EYES: PERRLA, EOMI, conjunctiva normal, no discharge. ENT: Hearing grossly intact, normal oropharynx. RESPIRATORY: Clear breath sounds bilaterally. No wheezes, rales, or rhonchi. C/V: Regular rate and rhythm. S1 and S2 auscultated, no edema, peripheral pulses 2+ and intact throughout ABD: Abd is soft, nontender, nondistended. No guarding. No peritoneal signs. No rebound tenderness. EXT: Normal range of motion, no obvious deformity SKIN: No rashes or lesions observed on exposed skin. NEURO: Alert and oriented 4. Limitations: no limitations Course Vital Signs 07/05/22 14:18 Temperature 98.6 F Pulse Rate 100 Respiratory 20 Rate Blood Pressure 131/77 O2 Sat by Pulse 99 Oximetry Medical Decision Making - Medical Decision Making Was pt. sent in by a medical professional or institution? @ -None Did you speak to anyone other than the patient for history? @ -No Did you review nursing and triage notes? @ -Yes. I agreed. Were old charts reviewed? @ -No Differential Diagnosis? @ -Differential Abdominal Pain Women: Appendicitis, Cholecystitis, diverticulosis, ischemic bowel, pancreatitis, hepatitis, UTI, gastroenteritis, AAA, incarcerated hernia, bowel obstruction, constipation, inflammatory bowel, hepatitis, peptic ulcer disease, splenic infarction, perforated viscus, vulvitis, ovarian torsion, PID, kidney stone, placenta abruption, this is not meant to be an all-inclusive list EKG interpreted by me (3pts min.)? @ -none X-rays interpreted by me (1pt min.)? @ -none CT interpreted by me (1pt min.)? @ -none U/S interpreted by me (1pt. min.)? @ -Yes. Appears to have a corpus luteal cyst as well as findings of possible early intrauterine gestation. No definitive IUP What testing was considered but not performed? (CT, X-rays, U/S, labs)? Why? @None What meds were considered but not given? Why? @ -None Did you discuss the management of the patient with other professionals? @ -None Did you reconcile home meds? @ -none Was smoking cessation discussed for >3mins.? @ -none Was critical care preformed (if so, how long)? @ -none Were there social determinants of health that impacted care today? How? (Homelessness, low income, unemployed, alcoholism, drug addiction, transportation, low edu. Level, literacy, decrease access to med. care, penitentiary, rehab)? @ -None Was there de-escalation of care discussed even if they declined? (Discuss DNR or withdrawal of care, Hospice)? @ -No What co-morbidities impacted this encounter? (DM, HTN, Smoking, COPD, CAD, Cancer, CVA, Hep., AIDS, mental health diagnosis, sleep apnea, morbid obesity)? @ -None Was patient admitted / discharged? @ -Based on the patient's presentation and physical exam, she is having abdominal cramping setting of new onset . Discussed over like to obtain abdominal laboratory studies, quantitative beta hCG, as well as an ultrasound. She was in agreement this plan. Vital signs within acceptable limits. She'll be given symptomatic therapeutic medications. Ultrasound showed no definitive IUP but possible early signs of an IUP. Laboratory studies were unremarkable. Urine was a contaminated catch. Beta-hCG is elevated to 1300. When I went to reevaluate an update the patient, she had eloped from the emergency department. I did attempt to contact her multiple times on her cell phone and she did not return a phone call. Patient eloped from the ED. she never had an IV placed. Undiagnosed new problem with uncertain prognosis? @ -New Drug Therapy requiring intensive monitoring for toxicity (Heparin, Nitro, Insulin, Cardizem)? @ -none Were any procedures done? @ -none Diagnosis/symptom? @ -New Acute, or Chronic, or Acute on Chronic? @ -Acute Uncomplicated (without systemic symptoms) or Complicated (systemic symptoms)? @ -Uncomplicated Side effects of treatment? @ -none Exacerbation, Progression, or Severe Exacerbation] @ -no Poses a threat to life or bodily function? @ -no - Lab Data Result diagrams: 07/05/22 17:42 07/05/22 17:42 Lab Results 07/05/22 07/05/22 07/05/22 Range/Units 17:42 17:42 17:42 WBC 10.2 (3.8-10.6) k/uL RBC 5.02 (3.80-5.40) m/uL Hgb 14.9 (11.4-16.0) gm/dL Hct 43.1 (34.0-46.0) % MCV 85.7 (80.0-100.0) fL MCH 29.7 (25.0-35.0) pg MCHC 34.7 (31.0-37.0) g/dL RDW 12.3 (11.5-15.5) % Plt Count 261 (150-450) k/uL MPV 9.2 Neutrophils % 75 % Lymphocytes % 18 % Monocytes % 4 % Eosinophils % 1 % Basophils % 0 % Neutrophils # 7.7 (1.3-7.7) k/uL Lymphocytes # 1.8 (1.0-4.8) k/uL Monocytes # 0.4 (0-1.0) k/uL Eosinophils # 0.1 (0-0.7) k/uL Basophils # 0.0 (0-0.2) k/uL PT 9.8 (9.0-12.0) sec INR 0.9 (<1.2) APTT 23.4 (22.0-30.0) sec Sodium 139 (137-145) mmol/L Potassium 4.1 (3.5-5.1) mmol/L Chloride 106 (98-107) mmol/L Carbon Dioxide 24 (22-30) mmol/L Anion Gap 9 mmol/L BUN 11 (7-17) mg/dL Creatinine 0.63 (0.52-1.04) mg/dL Est GFR (CKD-EPI)AfAm >90 (>60 ml/min/1.73 sqM) Est GFR (CKD-EPI)NonAf >90 (>60 ml/min/1.73 sqM) Glucose 94 (74-99) mg/dL Calcium 9.2 (8.4-10.2) mg/dL Total Bilirubin 0.2 (0.2-1.3) mg/dL AST 21 (14-36) U/L ALT 12 (4-34) U/L Alkaline Phosphatase 62 (38-126) U/L Total Protein 7.8 (6.3-8.2) g/dL Albumin 4.7 (3.5-5.0) g/dL Lipase 142 (23-300) U/L HCG, Quant 1330.7 mIU/mL Urine Color Urine Appearance (Clear) Urine pH (5.0-8.0) Ur Specific [place] (1.001-1.035) Urine Protein (Negative) Urine Glucose (UA) (Negative) Urine Ketones (Negative) Urine Blood (Negative) Urine Nitrite (Negative) Urine Bilirubin (Negative) Urine Urobilinogen (<2.0) mg/dL Ur Leukocyte Esterase (Negative) Urine RBC (0-5) /hpf Urine WBC (0-5) /hpf Ur Squamous Epith Cells (0-4) /hpf Urine Bacteria (None) /hpf Urine Mucus (None) /hpf 07/05/22 Range/Units 18:50 WBC (3.8-10.6) k/uL RBC (3.80-5.40) m/uL Hgb (11.4-16.0) gm/dL Hct (34.0-46.0) % MCV (80.0-100.0) fL MCH (25.0-35.0) pg MCHC (31.0-37.0) g/dL RDW (11.5-15.5) % Plt Count (150-450) k/uL MPV Neutrophils % % Lymphocytes % % Monocytes % % Eosinophils % % Basophils % % Neutrophils # (1.3-7.7) k/uL Lymphocytes # (1.0-4.8) k/uL Monocytes # (0-1.0) k/uL Eosinophils # (0-0.7) k/uL Basophils # (0-0.2) k/uL PT (9.0-12.0) sec INR (<1.2) APTT (22.0-30.0) sec Sodium (137-145) mmol/L Potassium (3.5-5.1) mmol/L Chloride (98-107) mmol/L Carbon Dioxide (22-30) mmol/L Anion Gap mmol/L BUN (7-17) mg/dL Creatinine (0.52-1.04) mg/dL Est GFR (CKD-EPI)AfAm (>60 ml/min/1.73 sqM) Est GFR (CKD-EPI)NonAf (>60 ml/min/1.73 sqM) Glucose (74-99) mg/dL Calcium (8.4-10.2) mg/dL Total Bilirubin (0.2-1.3) mg/dL AST (14-36) U/L ALT (4-34) U/L Alkaline Phosphatase (38-126) U/L Total Protein (6.3-8.2) g/dL Albumin (3.5-5.0) g/dL Lipase (23-300) U/L HCG, Quant mIU/mL Urine Color Yellow Urine Appearance Cloudy H (Clear) Urine pH 5.5 (5.0-8.0) Ur Specific [place] 1.023 (1.001-1.035) Urine Protein Trace H (Negative) Urine Glucose (UA) Negative (Negative) Urine Ketones Negative (Negative) Urine Blood Negative (Negative) Urine Nitrite Negative (Negative) Urine Bilirubin Negative (Negative) Urine Urobilinogen <2.0 (<2.0) mg/dL Ur Leukocyte Esterase Large H (Negative) Urine RBC 2 (0-5) /hpf Urine WBC 10 H (0-5) /hpf Ur Squamous Epith Cells 9 H (0-4) /hpf Urine Bacteria Rare H (None) /hpf Urine Mucus Occasional H (None) /hpf Disposition Clinical Impression: , Eloped from emergency department Disposition: Left Against Medical Advice Condition: Undetermined Is patient prescribed a controlled substance at d/c from ED?: No Referrals: None,Stated [Primary Care Provider] - 1-2 days Time of Disposition: 18:30
== END 2022-07-05 19:37 | disposition left against medical advice (07) ==
LOC: EC 14:15
DX: O26.891 Other specified pregnancy related conditions, first trimester (principal); O99.331 Smoking (tobacco) complicating pregnancy, first trimester; O99.711 Diseases of the skin and subcutaneous tissue complicating pregnancy, first trimester; R10.9 Unspecified abdominal pain; F17.290 Nicotine dependence, other tobacco product, uncomplicated; Z91.040 Latex allergy status; Z3A.01 Less than 8 weeks gestation of pregnancy; Z53.29 Procedure and treatment not carried out because of patient's decision for other reasons
CPT/HCPCS: 36415; 76801; 76817; 80053; 81001; 83690; 84702; 85025; 85610; 85730; 99284